=== PATIENT | female | born 1985 | race Asian ===

== ENCOUNTER 2016-06-15 09:13 | Inpatient (IN) | payer SELFPAY ==
[~2016-06-15] VITALS: Ht 165.1 cm; Wt 70.3 kg
[2016-06-15] MEDS ORDERED: CEFAZOLIN 2 GM IVPB PREMIX 50 ML IV ONE (09:45)
[2016-06-15 10:14] LABS: CALCIUM 8.7 mg/dL (8.4-11.0); CREATININE 0.61 mg/dL (0.55-1.30); POTASSIUM 3.9 mmol/L (3.5-5.1)
[2016-06-15 10:20] LABS: BASOPHILS # (AUTO) 0.1 K/uL (0.0-0.2); BASOPHILS % (AUTO) 1.1 % (0.0-2.0); EOSINOPHILS % (AUTO) 0.2 % (0.0-4.0); HEMATOCRIT 38.3 % (36-48); HEMOGLOBIN 12.4 g/dL (12.0-16.0); LYMPHOCYTES # (AUTO) 1.4 K/uL (1.0-5.5); LYMPHOCYTES % (AUTO) 15.4 % (20.5-51.5); MEAN CORPUSCULAR HEMOGLOBIN 29 pg (27-31); MEAN CORPUSCULAR HGB CONC 33 % (32-36); MEAN CORPUSCULAR VOLUME 90 fL (79.0-98.0); MONOCYTES # (AUTO) 0.7 K/uL (0.0-1.0); MONOCYTES % (AUTO) 7.3 % (1.7-9.3); NEUTROPHILS # (AUTO) 6.7 K/uL (1.8-7.7); PLATELET COUNT (AUTO) 190 K/uL (130-430); RED BLOOD CELL COUNT(AUTO) 4.26 MIL/uL (4.2-6.2); RED CELL DISTRIBUTION WIDTH 13.3 % (9.0-15.0); WHITE BLOOD COUNT (AUTO) 8.9 K/uL (4.8-10.8)
[2016-06-15 10:28] LABS: ALBUMIN 2.7 g/dL (3.4-4.8); TOTAL BILIRUBIN 0.5 mg/dL (0.0-1.0); TOTAL PROTEIN, SERUM 6.8 g/dL (6.4-8.3)
[2016-06-15] MEDS ORDERED: NS IRRIG SOLN 1000 ML IR ONE (13:50)
[2016-06-15] MEDS ORDERED: OXYTOCIN/NORMAL SALINE 1,000 ML IV ONE ×2 (13:50→16:08)
[2016-06-15] MEDS ORDERED: OXYTOCIN 10 UNIT/ML VIAL IV ONE (13:50)
[2016-06-15] MEDS ORDERED: ONDANSETRON HCL 4 MG/2 ML VIAL IVP ONE (13:50)
[2016-06-15] MEDS ORDERED: MORPHINE SULFATE 10MG/10ML PF AMP EP ONE (13:50)
[2016-06-15] MEDS ORDERED: LR 1,000 ML IV.SOLN IV ONE (13:50)
[2016-06-15] MEDS ORDERED: MEASLES,MUMPS&RUBELLA VACC/PF 12500 UNIT/0.5 ML VIAL SUBQ PRN (14:00)
[2016-06-15] MEDS ORDERED: ANUSOL 1 EA SUPP.RECT (PREPARATION H) RC PRN (14:00)
[2016-06-15] MEDS ORDERED: OXYCODONE/ACETAMINOPHEN 5-325 TABLET PO PRN ×2 (14:00)
[2016-06-15] MEDS ORDERED: HYDROcodone/ACETAMIN 5-325 MG TAB (NORCO/ VICODIN) PO PRN (14:00)
[2016-06-15] MEDS ORDERED: LANOLIN 7 GM OINT. TP PRN (14:00)
[2016-06-15] MEDS ORDERED: MORPHINE SULFATE 10MG/10ML PF AMP ONE (14:16)
[2016-06-15] MEDS ORDERED: NALOXONE HCL 1 MG in NACL 0.9% 1,000 ML IV PRN ×4 (14:40)
[2016-06-15] MEDS ORDERED: LR 1,000 ML IV SCH (14:40)
[2016-06-15] MEDS ORDERED: ONDANSETRON HCL 4 MG/2 ML VIAL IVP PRN (14:45)
[2016-06-15] MEDS ORDERED: DIPHENHYDRAMINE HCL 50 MG CAPSULE PO PRN (14:45)
[2016-06-15] MEDS ORDERED: MEPERIDINE HCL/PF 25 MG/ML DISP.SYRIN IVP PRN ×2 (14:45)
[2016-06-15] MEDS ORDERED: HYDROmorphone 1 MG INJ. 1 MG/ML AMPUL IVP PRN (14:45)
[2016-06-15] MEDS ORDERED: HYDROmorphone 2 MG/ML VIAL IVP PRN ×2 (14:45)
[2016-06-15] MEDS ORDERED: KETOROLAC TROMETHAMINE 60 MG/2 ML VIAL IM PRN (14:45)
[2016-06-15] MEDS ORDERED: DIPHENHYDRAMINE INJ 50 MG/ML VIAL IVP PRN (14:45)
[2016-06-15] MEDS ORDERED: NALOXONE HCL 0.4 MG/ML AMP (NARCAN) IVP PRN ×3 (14:45)
[2016-06-15] MEDS: CEFAZOLIN 1 GM IVPB PREMIX 50 ML IV SCH ×2 (18:19→23:42)
[2016-06-15] MEDS ORDERED: TEMAZEPAM 15 MG CAPSULE PO PRN (21:00)
[2016-06-16] MEDS ORDERED: IBUPROFEN 600 MG TABLET PO SCH (06:00)
[2016-06-16] MEDS: CEFAZOLIN 1 GM IVPB PREMIX 50 ML IV SCH (06:11)
[2016-06-16 07:25] LABS: BASOPHILS % (AUTO) 0.1 % (0.0-2.0); HEMATOCRIT 34.8 % (36-48); HEMOGLOBIN 11.9 g/dL (12.0-16.0); LYMPHOCYTES % (AUTO) 7.6 % (20.5-51.5); MEAN CORPUSCULAR HEMOGLOBIN 30 pg (27-31); MEAN CORPUSCULAR HGB CONC 34 % (32-36); MEAN CORPUSCULAR VOLUME 89 fL (79.0-98.0); MONOCYTES # (AUTO) 0.9 K/uL (0.0-1.0); MONOCYTES % (AUTO) 7.3 % (1.7-9.3); NEUTROPHILS # (AUTO) 10.6 K/uL (1.8-7.7); PLATELET COUNT (AUTO) 183 K/uL (130-430); RED BLOOD CELL COUNT(AUTO) 3.92 MIL/uL (4.2-6.2); RED CELL DISTRIBUTION WIDTH 13.1 % (9.0-15.0); WHITE BLOOD COUNT (AUTO) 12.5 K/uL (4.8-10.8)
[2016-06-16 11:35] VITALS: BP 104/52; PULSE 68; RESP 18; TEMP 98.3; O2SAT 99
[2016-06-16] MEDS: IBUPROFEN 600 MG TABLET PO SCH ×2 (12:18→17:59)
[2016-06-16] MEDS: DOCUSATE SODIUM 100 MG CAPSULE PO PRN (12:18)
[2016-06-16] MEDS: SIMETHICONE 80 MG TAB.CHEW PO PRN (12:19)
[2016-06-17] MEDS: IBUPROFEN 600 MG TABLET PO SCH ×5 (00:24→23:52)
[2016-06-17] MEDS: SIMETHICONE 80 MG TAB.CHEW PO PRN ×2 (00:24→12:44)
[2016-06-17] MEDS: DOCUSATE SODIUM 100 MG CAPSULE PO PRN ×2 (00:24→12:44)
[2016-06-18] MEDS: IBUPROFEN 600 MG TABLET PO SCH (12:22)
== END 2016-06-18 13:40 | disposition home or self-care (01) | DRG 766 ==
LOC: SPU 09:13
PROVIDERS: ADMIT Obstetrics & Gynecology; ATTEND Obstetrics & Gynecology
PROC: 0U910ZZ Drainage of Left Ovary, Open Approach (ICD-10-PCS; 2016-06-15)
PROC: 0U510ZZ Destruction of Left Ovary, Open Approach (ICD-10-PCS; 2016-06-15)
PROC: 10D00Z1 Extraction of Products of Conception, Low, Open Approach (ICD-10-PCS; principal; 2016-06-15 13:00)
DX: O34.13 Maternal care for benign tumor of corpus uteri, third trimester (principal); D25.1 Intramural leiomyoma of uterus; N83.202 Unspecified ovarian cyst, left side; O34.83 Maternal care for other abnormalities of pelvic organs, third trimester; Z3A.39 39 weeks gestation of pregnancy; Z37.0 Single live birth
CPT/HCPCS: 36415; 80053; 85025; 86592; 86886; 86900; 86901; 94760; J0690; J1885; J2274; J2310; J2405; J2590; J7030; J7120